=== PATIENT | female | born 1985 | race African-American/Black ===

== ENCOUNTER 2024-01-24 22:15 | Emergency (ER) | payer OTHER ==
[~2024-01-24] VITALS: Ht 162.6 cm; Wt 77.7 kg
[2024-01-24 22:25] VITALS: TEMP 100.3
[2024-01-24 23:37] LABS: COVID AG,FIA SOURCE NASAL SWAB
[2024-01-24 23:49] LABS: INFLUENZA TYPE A NEGATIVE FOR TYPE A (NEGATIVE); INFLUENZA TYPE B NEGATIVE FOR TYPE B (NEGATIVE); SARS-COV2 (COVID) ANTIGEN,FIA Negative (Negative)
[2024-01-24 23:51] LABS: RAPID GROUP A STREP POSITIVE (NEGATIVE)
[2024-01-25 00:09] VITALS: BP 103/64; PULSE 99; RESP 18; O2SAT 97
[2024-01-25] MEDS: AMOXICILLIN TRIHYDRATE 250 MG CAPSULE PO ONE (01:05)
[2024-01-25] MEDS ORDERED: AMOX250C4 PO (01:18)
[2024-01-25] MEDS: ACETAMINOPHEN 500 MG TABLET PO ONE (01:30)
== END 2024-01-25 01:32 | disposition home or self-care (01) ==
LOC: EMS 22:15
DX: J02.0 Streptococcal pharyngitis (principal); Z20.822 Contact with and (suspected) exposure to COVID-19
CPT/HCPCS: 87430; 87804; 99283